=== PATIENT | female | born 1975 | race African-American/Black ===

== ENCOUNTER 2017-11-30 10:24 | Emergency (ER) | payer MEDICAID ==
[~2017-11-30] VITALS: Ht 170.2 cm; Wt 47.6 kg
[2017-11-30 10:31] VITALS: BP 107/71
[2017-11-30 10:49] LABS: APPEARANCE,URINE Clear (CLEAR); BILIRUBIN,URINE Negative (NEGATIVE); BLOOD, URINE Trace-intact Ery/uL (NEGATIVE); COLOR,URINE Yellow (YELLOW); KETONES,URINE Trace (NEGATIVE); LEUKOCYTE ESTERASE ,URINE Negative (NEGATIVE); NITRITE, URINE Negative (NEGATIVE); PROTEIN,URINE Negative (NEGATIVE); UGLUCOSE Negative (NEGATIVE); UROBILINOGEN,URINE 0.2 EU/dL (0.2)
[2017-11-30 10:53] LABS: BACTERIA,URINE Few /HPF (None Seen); SQUAMOUS EPITHELIAL CELL,UR Few /HPF (None Seen)
== END 2017-11-30 12:46 | disposition home or self-care (01) ==
LOC: ER 10:25
DX: N89.8 Other specified noninflammatory disorders of vagina (principal); R82.99 Other abnormal findings in urine; Z98.51 Tubal ligation status
CPT/HCPCS: 81001; 84703; 87081; 87110; 87210; 99284; A4606; Z7610; 81000-TC

== ENCOUNTER 2018-04-22 14:38 | Emergency (ER) | payer MEDICAID ==
[~2018-04-22] VITALS: Ht 167.6 cm; Wt 44.9 kg
[2018-04-22 14:43] VITALS: BP 125/79
--- NOTE | 2018-04-22 15:10 | NUR ---
Patient discharged to home in stable condition. Written and verbal after care instructions given. Patient verbalizes understanding of instruction.
== END 2018-04-22 15:32 | disposition home or self-care (01) ==
LOC: ER 14:42
DX: S13.4XXA Sprain of ligaments of cervical spine, initial encounter (principal); Z98.890 Other specified postprocedural states; V49.69XA Unspecified car occupant injured in collision with other motor vehicles in traffic accident, initial encounter; Y93.89 Activity, other specified; Y92.413 State road as the place of occurrence of the external cause; Y99.8 Other external cause status
CPT/HCPCS: 99283; Z7610

== ENCOUNTER 2018-08-22 16:05 | Emergency (ER) | payer MEDICAID ==
[~2018-08-22] VITALS: Ht 170.2 cm; Wt 46.7 kg
[2018-08-22 17:09] VITALS: BP 111/66
[2018-08-22 17:54] LABS: APPEARANCE,URINE Slightly Cloudy (CLEAR); BILIRUBIN,URINE Negative (NEGATIVE); BLOOD, URINE Trace-intact Ery/uL (NEGATIVE); COLOR,URINE Red (YELLOW); KETONES,URINE Trace (NEGATIVE); LEUKOCYTE ESTERASE ,URINE Negative (NEGATIVE); NITRITE, URINE Positive (NEGATIVE); PROTEIN,URINE Trace mg/dl (NEGATIVE); UGLUCOSE Negative (NEGATIVE)
[2018-08-22 18:09] LABS: RBC,URINE 2-3/HPF /HPF (0-2)
[2018-08-22 18:10] LABS: BACTERIA,URINE Many /HPF (None Seen); MUCUS,URINE Few /LPF (None Seen); SQUAMOUS EPITHELIAL CELL,UR Moderate /HPF (None Seen)
== END 2018-08-22 18:47 | disposition home or self-care (01) ==
LOC: ER 16:11
DX: N39.0 Urinary tract infection, site not specified (principal); N89.8 Other specified noninflammatory disorders of vagina; Z98.51 Tubal ligation status
CPT/HCPCS: 81001; 84703; 87077; 87086; 87186; 87210; 99283; A6402; 81000-TC

== ENCOUNTER 2018-09-01 22:19 | Emergency (ER) ==
[~2018-09-01] VITALS: Ht 170.2 cm; Wt 43.5 kg
--- NOTE | 2018-09-01 23:10 | NUR ---
PATIENT C/O UTI FOR 1 WEEK, STATES " WAS TAKIN KEFLEX BUT IM RESISTANT TO IT". DENIES ANY PAIN SEEN BY .
[2018-09-01 23:25] LABS: APPEARANCE,URINE Clear (CLEAR); BILIRUBIN,URINE Negative (NEGATIVE); BLOOD, URINE Small Ery/uL (NEGATIVE); COLOR,URINE Other (YELLOW); KETONES,URINE Trace (NEGATIVE); LEUKOCYTE ESTERASE ,URINE Negative (NEGATIVE); NITRITE, URINE Negative (NEGATIVE); PROTEIN,URINE Negative (NEGATIVE); UGLUCOSE Negative (NEGATIVE); UROBILINOGEN,URINE 0.2 EU/dL (0.2)
[2018-09-02 00:45] LABS: BACTERIA,URINE Few /HPF (None Seen); RBC,URINE 21-50 /HPF (0-2)
[2018-09-02 00:46] LABS: SQUAMOUS EPITHELIAL CELL,UR Moderate /HPF (None Seen)
[2018-09-02 01:37] VITALS: BP 114/57
== END 2018-09-02 00:17 | disposition home or self-care (01) ==
LOC: ER 22:21
DX: R39.15 Urgency of urination (principal); Z98.51 Tubal ligation status
CPT/HCPCS: 81000-TC; 87086-TC

== ENCOUNTER 2019-02-06 12:28 | Emergency (ER) | payer MEDICAID ==
[~2019-02-06] VITALS: Ht 170.2 cm; Wt 46.7 kg
[2019-02-06 13:39] VITALS: BP 101/77
== END 2019-02-06 14:32 | disposition home or self-care (01) ==
LOC: ER 12:35
DX: M54.2 Cervicalgia (principal); Z98.51 Tubal ligation status; V49.49XA Driver injured in collision with other motor vehicles in traffic accident, initial encounter; Y93.89 Activity, other specified; Y92.488 Other paved roadways as the place of occurrence of the external cause; Y99.8 Other external cause status

== ENCOUNTER 2022-04-12 21:36 | Emergency (ER) | payer MEDICAID, OTHER ==
[~2022-04-12] VITALS: Ht 170.2 cm; Wt 49.9 kg
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
[2022-04-12] MEDS ORDERED: FLUORESCEIN SODIUM OPHTH 1 EA STRIP ONE (23:11)
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
--- NOTE | 2022-04-12 23:45 | NUR ---
[employer] AT BEDSIDE
[2022-04-13] VITALS: BP 119/74
[2022-04-13] MEDS ORDERED: methylPREDNISolone SOD SUCC 125 MG/2ML VIAL ONE (00:48)
[2022-04-13] MEDS ORDERED: Magnesium 1GM/D5W 100ML PREMIX 200 ML IV ONE (00:48)
--- NOTE | 2022-04-13 00:51 | NUR ---
[facility]LE[facility] AT BEDSIDE
--- NOTE | 2022-04-13 01:46 | NUR ---
Patient discharged to home in stable condition. Written and verbal after care instructions given. Patient verbalizes understanding of instruction.
== END 2022-04-13 01:46 | disposition home or self-care (01) ==
LOC: ER 21:41
DX: T76.21XA Adult sexual abuse, suspected, initial encounter (principal); Z98.890 Other specified postprocedural states
CPT/HCPCS: 99283; J2930; J3475

== ENCOUNTER 2022-10-28 07:18 | Emergency (ER) | payer OTHER ==
[~2022-10-28] VITALS: Ht 167.6 cm; Wt 48.1 kg
[~2022-10-28 07:18] MED LIST: IBUP-1953 PO
--- NOTE | 2022-10-28 07:37 | NUR ---
URINE SAMPLE OBTAINED
[2022-10-28 08:08] LABS: BILIRUBIN,URINE NEGATIVE (NEGATIVE); COLOR,URINE YELLOW (YELLOW); LEUKOCYTE ESTERASE ,URINE NEGATIVE (NEGATIVE); NITRITE, URINE NEGATIVE (NEGATIVE); PH,URINE 5.5 (5.0-8.0); PROTEIN,URINE NEGATIVE (NEGATIVE); UGLUCOSE NEGATIVE (NEGATIVE); UROBILINOGEN,URINE 0.2 EU/dL (0.2)
[2022-10-28 08:10] LABS: BACTERIA,URINE Rare /HPF (None Seen); SQUAMOUS EPITHELIAL CELL,UR Few /HPF (None Seen); WBC,URINE 0-2 /HPF (0-3)
--- NOTE | 2022-10-28 08:56 | NUR ---
VAGINAL CULTURES SENT OFF
[2022-10-28] MEDS ORDERED: DOXY100C2 PO (09:50)
[2022-10-28 10:00] VITALS: BP 110/70; TEMP 98.3; O2SAT 100
== END 2022-10-28 10:01 | disposition home or self-care (01) ==
LOC: ER 07:23
DX: N76.0 Acute vaginitis (principal)
CPT/HCPCS: 81001; 84703-TC; 87210-TC

== ENCOUNTER 2024-01-19 16:30 | Emergency (ER) | payer OTHER ==
[~2024-01-19] VITALS: Ht 170.2 cm; Wt 49.4 kg
[~2024-01-19 16:30] MED LIST changes: +DOXY100C2 PO
[2024-01-19 17:37] LABS: BASOPHILS % (AUTO) 0.7 % (0.0-2.0); EOSINOPHILS # (AUTO) 0.1 K/uL (0.0-0.7); EOSINOPHILS % (AUTO) 1.7 % (0.0-6.0); HEMATOCRIT 40 % (33-45); HEMOGLOBIN 13.4 g/dL (11.5-14.8); LYMPHOCYTES # (AUTO) 2.3 K/uL (0.8-4.8); LYMPHOCYTES % (AUTO) 58.2 % (20.0-44.0); MEAN CORPUSCULAR HEMOGLOBIN 32 PG (26.0-33.0); MEAN CORPUSCULAR HGB CONC 34 g/dl (31.0-36.0); MEAN CORPUSCULAR VOLUME 94 fL (82-100); MONOCYTES # (AUTO) 0.4 K/uL (0.1-1.30); NEUTROPHILS # (AUTO) 1.1 K/uL (1.8-8.9); NEUTROPHILS % (AUTO) 28.4 % (43.0-81.0); PLATELET COUNT (AUTO) 236 K/uL (150-450); RED BLOOD CELL COUNT(AUTO) 4.26 MIL/uL (4.0-5.2); RED CELL DISTRIBUTION WIDTH 15.2 % (11.5-15.0)
[2024-01-19 17:46] LABS: APPEARANCE,URINE Clear (CLEAR); BILIRUBIN,URINE Negative (NEGATIVE); BLOOD, URINE Negative Ery/uL (NEGATIVE); COLOR,URINE YELLOW (YELLOW); KETONES,URINE Negative (NEGATIVE); LEUKOCYTE ESTERASE ,URINE Negative (NEGATIVE); NITRITE, URINE Negative (NEGATIVE); PH,URINE 8.5 (5.0-8.0); PROTEIN,URINE Negative (NEGATIVE); UGLUCOSE Negative (NEGATIVE); UROBILINOGEN,URINE 0.2 EU/dL (0.2)
[2024-01-19 17:50] LABS: CALCIUM, SERUM 9.3 mg/dL (8.5-10.1); CREATININE 0.9 mg/dL (0.6-1.3); POTASSIUM 3.4 mmol/L (3.5-5.1)
[2024-01-19 17:55] LABS: PREGNANCY TEST URINE QUAL NEGATIVE (NEGATIVE)
[2024-01-19 17:57] LABS: LACTIC ACID 0.9 mmol/L (0.4-2.0)
[2024-01-19 18:04] LABS: ALBUMIN 4.2 g/dL (3.4-5.0); BILIRUBIN,DIRECT 0.2 mg/dL (0.0-0.2); BILIRUBIN,TOTAL 0.8 mg/dL (0.2-1.0); TOTAL PROTEIN, SERUM 7.7 g/dL (6.4-8.2)
[2024-01-19] MEDS ORDERED: METR-147 PO (19:03)
[2024-01-19 19:18] VITALS: BP 130/70; TEMP 98.6; O2SAT 99
[2024-01-20 06:21] LABS: HIV-1 p24 ANTIGEN NON REACTIVE (NONREACTIVE); HIV-1/2 ANTIBODY NON REACTIVE (NONREACTIVE)
[2024-01-21 05:11] LABS: RAPID PLASMA REAGIN QUAL. Non Reactive (Non Reactive)
[2024-01-21 23:07] LABS: CHLAMYDIA TRACHOMATIS NAA Negative (Negative); NEISSERIA GONORRHOEAE NAA Negative (Negative)
[2024-01-22 08:10] LABS: *HSV 1 DNA PCR Negative (Negative); *HSV 2 DNA PCR Negative (Negative)
== END 2024-01-19 19:18 | disposition home or self-care (01) ==
LOC: ER 16:40
DX: D25.1 Intramural leiomyoma of uterus (principal); N76.0 Acute vaginitis; B96.89 Other specified bacterial agents as the cause of diseases classified elsewhere; R10.2 Pelvic and perineal pain; Z98.51 Tubal ligation status
CPT/HCPCS: 36415; 76856-TC; 80048-TC; 80076-TC; 83605-TC; 84703-TC; 85025-TC; 86592; 86593; 87491; 87591; 87806

== ENCOUNTER 2024-05-22 17:14 | Emergency (ER) | payer OTHER ==
[~2024-05-22] VITALS: Ht 167.6 cm; Wt 47.2 kg
[~2024-05-22 17:14] MED LIST changes: +METR-147 PO
[2024-05-22 17:19] VITALS: BP 107/66; TEMP 100.4
[2024-05-22 17:34] VITALS: O2SAT 98
== END 2024-05-22 17:36 | disposition home or self-care (01) ==
LOC: ER 17:16
DX: B34.9 Viral infection, unspecified (principal); R11.2 Nausea with vomiting, unspecified; J02.9 Acute pharyngitis, unspecified; Z98.51 Tubal ligation status

== ENCOUNTER 2024-05-25 00:39 | Emergency (ER) | payer OTHER ==
[~2024-05-25] VITALS: Ht 170.2 cm; Wt 49.4 kg
[2024-05-25 01:48] VITALS: BP 102/70; TEMP 99; O2SAT 99
[2024-05-25] MEDS ORDERED: AMOX500C2 PO (02:15)
[2024-05-25] MEDS ORDERED: AMOXICILLIN TRIHYDRATE 250 MG CAPSULE ONE (02:17)
[2024-05-25] MEDS: AMOXICILLIN TRIHYDRATE 500 MG CAPSULE PO ONE (02:25)
== END 2024-05-25 02:42 | disposition home or self-care (01) ==
LOC: ER 00:44
DX: J02.9 Acute pharyngitis, unspecified (principal); R50.9 Fever, unspecified; Z98.51 Tubal ligation status